=== PATIENT | male | born 1940 | race Caucasian/White ===

== ENCOUNTER 2020-05-16 18:49 | Inpatient (IN) ==
[2020-05-16 22:36] LABS: Basophils % 0.3 % (0.0-0.8); Eosinophils # 0.1 10*3/uL (0.0-0.87); Eosinophils % 0.8 % (0.00-10.9); Hematocrit 31.9 VOL% (42.0-52.0); Hemoglobin 10.3 GM/DL (14.0-18.0); Immature Granulocytes % 0.9 %; Lymphocytes # 1.5 10*3/uL (1.4-4.0); Lymphocytes % 13.4 % (21.2-54.2); Mean Corpuscular HGB Conc 32.3 GM/DL (32-36); Mean Corpuscular Volume 91.9 FL (87-102); Mean Platelet Volume 8.9 FL (9.6-12.0); Monocytes % 15.8 % (1.7-12.7); Neutrophils % 68.8 % (38.7-73.9); Platelet Count 347 T/CUMM (130-400); Red Blood Count 3.47 MC/CUMM (3.8-5.5); Red Cell Distribution Width 13.5 % (9.3-17.3); White Blood Count 11.1 T/CUMM (4-12)
[2020-05-16] MEDS ORDERED: GLUCAGON 1 MG VIAL IM PRN (23:01)
[2020-05-16] MEDS ORDERED: DEXTROSE 50% 25 GM/50 ML VIAL IV PRN (23:01)
[2020-05-16 23:23] LABS: Band Neutrophils 1 % (0-10); Eosinophils 1 % (0-10); Lymphocytes 13 % (20-55); Segmented Neutrophils 69 % (50-85); Total Cells Counted 100
[2020-05-16 23:24] LABS: Hypochromasia 2+; Platelet Estimate Normal
[2020-05-17] MEDS ORDERED: guaiFENesin/DM ER 600-30 MG TABLET PO PRN (00:02)
[2020-05-17] MEDS ORDERED: GLUCAGON 1 MG VIAL IM PRN (00:02)
[2020-05-17] MEDS ORDERED: DEXTROSE 50% 25 GM/50 ML VIAL IV PRN (00:02)
[2020-05-17] MEDS ORDERED: NICOTINE 21 MG/24 HR PATCH TRANSDERM PRN (00:02)
[2020-05-17] MEDS ORDERED: hydrALAZINE 20 MG/1 ML VIAL IV PRN (00:02)
[2020-05-17] MEDS ORDERED: SIMETHICONE CHEW 125 MG TABLET PO PRN (00:02)
[2020-05-17] MEDS ORDERED: CALCIUM CARBONATE CHEW 500 MG TABLET PO PRN (00:02)
[2020-05-17] MEDS ORDERED: ALUMINUM/MAGNES/SIMETH MAX STR 30 ML UDCUP PO PRN (00:02)
[2020-05-17] MEDS ORDERED: ACETAMINOPHEN 325 MG TABLET PO PRN (00:02)
[2020-05-17] MEDS ORDERED: BISACODYL 5 MG TABLET PO PRN (00:02)
[2020-05-17] MEDS ORDERED: ONDANSETRON 4 MG/2 ML VIAL IV PRN (00:02)
[2020-05-17] MEDS ORDERED: diphenhydrAMINE CAP 25 MG CAPSULE PO PRN (00:02)
[2020-05-17] MEDS: ENOXAPARIN 40 MG/0.4 ML SYRINGE SUBCUT SCH (00:35)
[2020-05-17] MEDS: MORPHINE 4 MG/1 ML VIAL IV PRN (00:35)
[2020-05-17] MEDS: METOPROLOL TARTRATE 50 MG TABLET PO SCH ×3 (00:35→21:23)
[2020-05-17] MEDS: CLINDAMYCIN INJ 600 MG in PREMIX 1 EACH IV SCH ×4 (00:42→21:27)
[2020-05-17 05:57] LABS: Basophils % 0.3 % (0.0-0.8); Basophils % 0.4 % (0.0-0.8); Eosinophils # 0.1 10*3/uL (0.0-0.87); Eosinophils % 1.3 % (0.00-10.9); Hematocrit 25.6 VOL% (42.0-52.0); Hemoglobin 8.5 GM/DL (14.0-18.0); Hemoglobin 8.7 GM/DL (14.0-18.0); Immature Granulocytes % 0.4 %; Immature Granulocytes % 0.6 %; Immature Granulocytes Absolute 0.03 #; Immature Granulocytes Absolute 0.04 #; Lymphocytes # 1.1 10*3/uL (1.4-4.0); Lymphocytes % 15.3 % (21.2-54.2); Lymphocytes % 15.6 % (21.2-54.2); Mean Corpuscular HGB Conc 32.7 GM/DL (32-36); Mean Corpuscular Volume 89.8 FL (87-102); Mean Corpuscular Volume 91.5 FL (87-102); Monocytes % 16.9 % (1.7-12.7); Monocytes % 17.9 % (1.7-12.7); Neutrophils % 64.7 % (38.7-73.9); Neutrophils % 65.3 % (38.7-73.9); Platelet Count 277 T/CUMM (130-400); Platelet Count 294 T/CUMM (130-400); Red Blood Count 2.84 MC/CUMM (3.8-5.5); Red Blood Count 2.85 MC/CUMM (3.8-5.5); Red Cell Distribution Width 13.5 % (9.3-17.3); White Blood Count 6.9 T/CUMM (4-12)
[2020-05-17 06:19] LABS: Calcium 8.4 MG/DL (8.5-10.1); Eosinophils 1 % (0-10); Hypochromasia 2+; Lymphocytes 13 % (20-55); Microcytosis 1+; Osmolality,Calculated 280.5 MOS/KG (273-304); Platelet Estimate Adequate; Potassium 3.8 MMOL/L (3.5-5.1); Segmented Neutrophils 77 % (50-85); Total Cells Counted 100
[2020-05-17 06:21] LABS: Hypochromasia 1+; Lymphocytes 15 % (20-55); Microcytosis 1+; Platelet Estimate Adequate; Segmented Neutrophils 70 % (50-85); Total Cells Counted 100
[2020-05-17 06:36] LABS: Folate 17.4 NG/ML (5.38-24.0); Vitamin B12 430 PG/ML (211-911)
[2020-05-17 07:06] LABS: Sedimentation Rate-Westergren 81 MM/HR (0-20)
[2020-05-17] MEDS: INSULIN LISPRO 100 UNIT/ML SUBCUT SCH ×4 (08:08→21:27)
[2020-05-17] MEDS: PANTOPRAZOLE 40 MG TABLET PO SCH (08:32)
[2020-05-18] MEDS: ENOXAPARIN 40 MG/0.4 ML SYRINGE SUBCUT SCH (00:57)
[2020-05-18] MEDS: CLINDAMYCIN INJ 600 MG in PREMIX 1 EACH IV SCH (05:34)
[2020-05-18 06:25] LABS: Basophils % 0.4 % (0.0-0.8); Eosinophils # 0.2 10*3/uL (0.0-0.87); Eosinophils % 3.3 % (0.00-10.9); Hematocrit 25.9 VOL% (42.0-52.0); Hemoglobin 8.5 GM/DL (14.0-18.0); Immature Granulocytes % 0.7 %; Immature Granulocytes Absolute 0.05 #; Lymphocytes # 1.3 10*3/uL (1.4-4.0); Lymphocytes % 17.8 % (21.2-54.2); Mean Corpuscular HGB Conc 32.8 GM/DL (32-36); Mean Corpuscular Volume 90.9 FL (87-102); Mean Platelet Volume 8.8 FL (9.6-12.0); Monocytes % 16.5 % (1.7-12.7); Neutrophils % 61.3 % (38.7-73.9); Platelet Count 302 T/CUMM (130-400); Red Blood Count 2.85 MC/CUMM (3.8-5.5); Red Cell Distribution Width 13.5 % (9.3-17.3); White Blood Count 7.2 T/CUMM (4-12)
[2020-05-18 06:46] LABS: Eosinophils 3 % (0-10); Lymphocytes 22 % (20-55); Segmented Neutrophils 69 % (50-85); Total Cells Counted 100
[2020-05-18 06:47] LABS: Hypochromasia 1+; Platelet Estimate Normal
[2020-05-18 07:05] LABS: Calcium 8.8 MG/DL (8.5-10.1); Osmolality,Calculated 276.7 MOS/KG (273-304); Potassium 3.8 MMOL/L (3.5-5.1)
[2020-05-18] MEDS ORDERED: fentaNYL 100 MCG/2 ML VIAL ONE (09:02)
[2020-05-18] MEDS ORDERED: propofoL 200 MG/20 ML VIAL IV ONE (09:06)
[2020-05-18] MEDS ORDERED: LIDOCAINE 2% 5 ML VIAL ONE (09:06)
[2020-05-18] MEDS: PANTOPRAZOLE 40 MG TABLET PO SCH (09:11)
[2020-05-18] MEDS: INSULIN LISPRO 100 UNIT/ML SUBCUT SCH ×4 (09:11→20:55)
[2020-05-18] MEDS: METOPROLOL TARTRATE 50 MG TABLET PO SCH ×2 (09:11→20:55)
[2020-05-18] MEDS ORDERED: LACTATED RINGERS 1,000 ML IV ONE (10:14)
[2020-05-18] MEDS ORDERED: MIDAZOLAM 2 MG/2 ML VIAL ONE (10:21)
[2020-05-18] MEDS ORDERED: BUPIVACAINE MPF 0.25% 30 ML VIAL ONE (10:24)
[2020-05-18] MEDS ORDERED: LIDOCAINE 1%/EPI INJ 20 ML VIAL ONE (10:24)
[2020-05-18] MEDS: PIPERACILLIN/TAZOBACTAM 3,375 MG in SODIUM CHLORIDE 0.9% 100 ML IV SCH ×2 (11:56→20:55)
[2020-05-18 16:10] LABS: % Iron Saturation 5.8 % (18-50); Ferritin 135.7 ng/ml (26-388)
[2020-05-18 16:16] LABS: Folate 18.1 NG/ML (5.38-24.0)
[2020-05-18] MEDS: SIMVASTATIN 20 MG TABLET PO SCH (20:55)
[2020-05-18] MEDS: TAMSULOSIN 0.4 MG CAPSULE PO SCH (20:55)
[2020-05-18] MEDS: FENOFIBRATE 160 MG TABLET PO SCH (20:55)
[2020-05-19] MEDS: ENOXAPARIN 40 MG/0.4 ML SYRINGE SUBCUT SCH (00:27)
[2020-05-19 02:50] LABS: Basophils % 0.4 % (0.0-0.8); Eosinophils # 0.4 10*3/uL (0.0-0.87); Eosinophils % 5.2 % (0.00-10.9); Hematocrit 26.1 VOL% (42.0-52.0); Hemoglobin 8.6 GM/DL (14.0-18.0); Immature Granulocytes % 0.4 %; Immature Granulocytes Absolute 0.03 #; Lymphocytes # 1.4 10*3/uL (1.4-4.0); Lymphocytes % 21.3 % (21.2-54.2); Mean Corpuscular Volume 91.6 FL (87-102); Mean Platelet Volume 8.8 FL (9.6-12.0); Monocytes % 13.9 % (1.7-12.7); Neutrophils % 58.8 % (38.7-73.9); Platelet Count 315 T/CUMM (130-400); Red Blood Count 2.85 MC/CUMM (3.8-5.5); Red Cell Distribution Width 13.3 % (9.3-17.3); White Blood Count 6.7 T/CUMM (4-12)
[2020-05-19 03:02] LABS: Calcium 8.5 MG/DL (8.5-10.1); Osmolality,Calculated 276.7 MOS/KG (273-304); Potassium 3.5 MMOL/L (3.5-5.1)
[2020-05-19] MEDS: PIPERACILLIN/TAZOBACTAM 3,375 MG in SODIUM CHLORIDE 0.9% 100 ML IV SCH ×3 (04:16→22:15)
[2020-05-19 08:45] LABS: Hemoglobin A1 (Alkaline) 97.6 % (96.5-98.5); Hemoglobin A2 (Alkaline) 2.4 % (1.5-3.5)
[2020-05-19] MEDS: PANTOPRAZOLE 40 MG TABLET PO SCH (10:23)
[2020-05-19] MEDS: METOPROLOL TARTRATE 50 MG TABLET PO SCH ×2 (10:23→22:13)
[2020-05-19] MEDS: FUROSEMIDE 20 MG TABLET PO SCH (10:23)
[2020-05-19] MEDS: INSULIN LISPRO 100 UNIT/ML SUBCUT SCH ×3 (13:04→22:15)
[2020-05-19] MEDS: ZALEPLON 5 MG CAPSULE PO PRN (22:13)
[2020-05-19] MEDS: SIMVASTATIN 20 MG TABLET PO SCH (22:13)
[2020-05-19] MEDS: TAMSULOSIN 0.4 MG CAPSULE PO SCH (22:13)
[2020-05-19] MEDS: FENOFIBRATE 160 MG TABLET PO SCH (22:14)
[2020-05-20] MEDS: ENOXAPARIN 40 MG/0.4 ML SYRINGE SUBCUT SCH (00:09)
[2020-05-20] MEDS: PIPERACILLIN/TAZOBACTAM 3,375 MG in SODIUM CHLORIDE 0.9% 100 ML IV SCH ×2 (05:02→13:40)
[2020-05-20 05:35] LABS: Basophils % 0.4 % (0.0-0.8); Eosinophils # 0.3 10*3/uL (0.0-0.87); Eosinophils % 4.5 % (0.00-10.9); Hematocrit 27.8 VOL% (42.0-52.0); Immature Granulocytes % 1.6 %; Immature Granulocytes Absolute 0.11 #; Lymphocytes # 1.3 10*3/uL (1.4-4.0); Lymphocytes % 18.6 % (21.2-54.2); Mean Corpuscular HGB Conc 32.4 GM/DL (32-36); Mean Corpuscular Volume 89.7 FL (87-102); Mean Platelet Volume 8.9 FL (9.6-12.0); Monocytes % 14.9 % (1.7-12.7); Platelet Count 377 T/CUMM (130-400); Red Cell Distribution Width 13.2 % (9.3-17.3); White Blood Count 6.7 T/CUMM (4-12)
[2020-05-20 05:52] LABS: Calcium 8.9 MG/DL (8.5-10.1); Osmolality,Calculated 280.5 MOS/KG (273-304); Potassium 3.6 MMOL/L (3.5-5.1)
[2020-05-20] MEDS: INSULIN LISPRO 100 UNIT/ML SUBCUT SCH ×4 (08:16→22:01)
[2020-05-20] MEDS: FUROSEMIDE 20 MG TABLET PO SCH (08:50)
[2020-05-20] MEDS: PANTOPRAZOLE 40 MG TABLET PO SCH (08:50)
[2020-05-20] MEDS: METOPROLOL TARTRATE 50 MG TABLET PO SCH ×2 (08:54→21:44)
[2020-05-20] MEDS ORDERED: SODIUM CHLORIDE 0.9% 500 ML IV ONE (09:04)
[2020-05-20] MEDS ORDERED: MAGNESIUM SULF RIDER 2 GM in PREMIX 1 EACH IV PRN (10:02)
[2020-05-20] MEDS ORDERED: MAGNESIUM SULF RIDER 4 GM in PREMIX 1 EACH IV PRN (10:02)
[2020-05-20] MEDS: LEVOFLOXACIN 500 MG TABLET PO SCH (13:35)
[2020-05-20] MEDS: TAMSULOSIN 0.4 MG CAPSULE PO SCH (21:44)
[2020-05-20] MEDS: ZALEPLON 5 MG CAPSULE PO PRN (21:44)
[2020-05-20] MEDS: FENOFIBRATE 160 MG TABLET PO SCH (21:44)
[2020-05-20] MEDS: MORPHINE 4 MG/1 ML VIAL IV PRN (21:50)
[2020-05-20] MEDS: SIMVASTATIN 20 MG TABLET PO SCH (22:06)
[2020-05-21] MEDS: ENOXAPARIN 40 MG/0.4 ML SYRINGE SUBCUT SCH (00:11)
[2020-05-21 06:30] LABS: Basophils # 0.1 10*3/uL (0.0-0.2); Basophils % 0.7 % (0.0-0.8); Eosinophils # 0.3 10*3/uL (0.0-0.87); Eosinophils % 3.9 % (0.00-10.9); Immature Granulocytes % 2.4 %; Immature Granulocytes Absolute 0.17 #; Lymphocytes # 1.5 10*3/uL (1.4-4.0); Lymphocytes % 20.1 % (21.2-54.2); Mean Corpuscular HGB Conc 32.1 GM/DL (32-36); Mean Corpuscular Volume 91.8 FL (87-102); Mean Platelet Volume 8.8 FL (9.6-12.0); Monocytes % 15.6 % (1.7-12.7); Neutrophils % 57.3 % (38.7-73.9); Platelet Count 402 T/CUMM (130-400); Red Blood Count 3.05 MC/CUMM (3.8-5.5); Red Cell Distribution Width 13.2 % (9.3-17.3); White Blood Count 7.2 T/CUMM (4-12)
[2020-05-21 06:47] LABS: Calcium 9.2 MG/DL (8.5-10.1); Osmolality,Calculated 284.4 MOS/KG (273-304); Potassium 4.6 MMOL/L (3.5-5.1)
[2020-05-21 06:48] LABS: Eosinophils 8 % (0-10); Lymphocytes 18 % (20-55); Platelet Estimate Adequate; Segmented Neutrophils 63 % (50-85); Total Cells Counted 100
[2020-05-21 06:49] LABS: Hypochromasia 1+; Microcytosis 1+
[2020-05-21] MEDS: FUROSEMIDE 20 MG TABLET PO SCH (10:08)
[2020-05-21] MEDS: LEVOFLOXACIN 500 MG TABLET PO SCH (10:08)
[2020-05-21] MEDS: PANTOPRAZOLE 40 MG TABLET PO SCH (10:08)
[2020-05-21] MEDS: METOPROLOL TARTRATE 50 MG TABLET PO SCH (10:08)
[2020-05-21 11:35] VITALS: BP 141/78
[2020-05-21] MEDS: INSULIN LISPRO 100 UNIT/ML SUBCUT SCH ×2 (12:15→12:16)
== END 2020-05-21 14:25 | disposition home or self-care (01) | DRG 857 ==
LOC: N.3E
PROVIDERS: ADMIT Internal Medicine; ATTEND Internal Medicine